=== PATIENT | female | born 1990 | race Caucasian/White ===

== ENCOUNTER 2016-11-01 07:36 | Emergency (ER) | payer OTHER ==
[2016-11-01 09:13] LABS: APPEARANCE HAZY (CLEAR); BILIRUBIN NEGATIVE (NEGATIVE); COLOR YELLOW (YELLOW); GLUCOSE NEGATIVE (NEGATIVE); KETONE NEGATIVE (NEGATIVE); LEUKOCYTE ESTERASE NEGATIVE (NEGATIVE); NITRITE NEGATIVE (NEGATIVE); PROTEIN NEGATIVE (NEGATIVE); UROBILINOGEN NORMAL (NORMAL)
[2016-11-01 09:14] LABS: HCG URINE NEGATIVE (NEGATIVE)
== END 2016-11-01 09:33 | disposition home or self-care (01) ==
LOC: D.ER 07:36
PROVIDERS: Family Medicine
DX: M54.5 Low back pain (principal)

== ENCOUNTER 2017-07-20 07:10 | Emergency (ER) | payer OTHER | END 2017-07-20 08:40 | disposition home or self-care (01) | LOC: D.ER 07:10 | DX: J02.0 Streptococcal pharyngitis (principal); R50.9 Fever, unspecified ==

== ENCOUNTER 2020-06-23 18:07 | Inpatient (IN) | payer MEDICAID ==
[~2020-06-23] VITALS: Ht 165.1 cm; Wt 123.8 kg
[2020-06-23] MEDS ORDERED: FERROUS SULFAT325 MG PO (18:18)
[2020-06-23 18:43] LABS: BASOPHILS 0.3 % (0-2); EOSINOPHILS 2.8 % (0-7); HEMATOCRIT 39.1 % (36.0-48.0); HEMOGLOBIN 12.9 g/dL (12-16); IMMATURE GRANULOCYTES 0.1 % (0-5); LYMPHOCYTE ABS# 1.88 10x3/uL (1.18-3.74); MCH 30.3 pg (26.0-34.0); MCV 91.8 fL (80.0-100.0); MEAN PLATELET VOLUME 10.3 fL (7.4-10.4); MONOCYTES 4.2 % (2-11); NEUTROPHIL ABS# 4.34 10x3/uL (1.56-6.13); NEUTROPHILS 64.6 % (40-80); PLATELET COUNT 251 10x3/uL (130-400); RBC 4.26 10x6/uL (4.00-5.40); RDW 13.6 % (11.5-14.5); WBC 6.7 10x3/uL (4.8-10.8)
[2020-06-23 19:15] LABS: ALBUMIN 3.3 g/dL (3.4-5.0); ANION GAP 17.8 mmol/L (8-16); BILIRUBIN - TOTAL 0.21 mg/dL (0.2-1.3); CARBON DIOXIDE 23.4 mmol/L (21.0-32.0); POTASSIUM - SERUM 4.2 mmol/L (3.5-5.1); PROTEIN - SERUM 7.6 g/dL (6.4-8.2)
[2020-06-23 19:25] LABS: HCG URINE NEGATIVE (NEGATIVE)
[2020-06-23 19:25] LABS: BILIRUBIN NEGATIVE (NEGATIVE); KETONE NEGATIVE (NEGATIVE); NITRITE NEGATIVE (NEGATIVE); UROBILINOGEN NORMAL mg/dL (< 2)
[2020-06-23 23:14] VITALS: BP 152/72; BMI 45.5
[2020-06-24] VITALS: BP 152/72
--- NOTE | 2020-06-24 01:55 | NUR ---
PT IN ROOM RESTING. IS AT BEDSIDE. NO COMPLAINTS OF PAIN NOR DISTRESS. BLOOD GLUCOSE FINGER STICK WAS TAKEN AND NOTED TO BE 311. INSULIN WAS GIVEN. ABLE TO MAKE WANTS AND NEEDS KNOWN TO STAFF CLEARLY. BED IN LOW POSITION AND CALL LIGHT IS IN REACH.
[2020-06-24 04:00] VITALS: BP 127/82
[2020-06-24 06:56] LABS: CALCIUM 9.1 mg/dL (8.5-10.1); CARBON DIOXIDE 27.3 mmol/L (21.0-32.0); CHLORIDE - SERUM 100 mmol/L (98-107); CHOL - HDL RATIO 7.6 ratio (2.3-4.1); CHOLESTEROL, TOTAL 212 mg/dL (0-200); HDL CHOLESTEROL 28 mg/dL (32-96); MAGNESIUM - SERUM 1.9 mg/dL (1.8-2.4); PHOSPHOROUS 3.9 mg/dL (2.5-4.9); SODIUM 137 mmol/L (136-145); UREA NITROGEN 9 mg/dL (7-18)
[2020-06-24 06:59] LABS: CALC OSMOLALITY 286 mosm/kg (275-300); CREATININE - SERUM 0.7 mg/dL (0.6-1.3); GLUCOSE 350 mg/dL (74-106); POTASSIUM - SERUM 3.5 mmol/L (3.5-5.1); TRIGLYCERIDE 582 mg/dL (30-200); eGFR NON AFRICAN AMERICAN > 90 mL/min (90-120)
[2020-06-24 07:44] LABS: BASOPHILS 0.5 % (0-2); EOSINOPHILS 3.3 % (0-7); HEMATOCRIT 38.3 % (36.0-48.0); HEMOGLOBIN 12.7 g/dL (12-16); IMMATURE GRANULOCYTES 0.5 % (0-5); LYMPHOCYTE ABS# 2.12 10x3/uL (1.18-3.74); LYMPHOCYTES 31.9 % (15-50); MCH 30.4 pg (26.0-34.0); MCHC 33.2 g/dL (31.0-37.0); MCV 91.6 fL (80.0-100.0); MEAN PLATELET VOLUME 10.4 fL (7.4-10.4); MONOCYTES 4.8 % (2-11); NEUTROPHIL ABS# 3.93 10x3/uL (1.56-6.13); PLATELET COUNT 235 10x3/uL (130-400); RBC 4.18 10x6/uL (4.00-5.40); RDW 13.6 % (11.5-14.5); WBC 6.7 10x3/uL (4.8-10.8)
--- NOTE | 2020-06-24 07:58 | NUR ---
RESTING IN BED WITH EYES CLOSED, EASILY AROUSED TO SPEECH. AT THE BEDSIDE. IV LOCATED TO RIGHT AC CURRENTLY SL. NO CURRENT S/S OF DISTRESS, DENIES CURRENT NEEDS, WILL CONT TO MONITOR.
[2020-06-24 09:40] VITALS: BP 139/66
[2020-06-24 13:16] VITALS: BMI 45.4
[2020-06-24 14:59] VITALS: BP 142/62
[2020-06-24 16:35] VITALS: Ht 165.1 cm; Wt 123.8 kg
[2020-06-24] MEDS ORDERED: GLIPIZIDE5 MG PO (16:39)
[2020-06-24] MEDS ORDERED: GLUCOPHAGE500 MG PO (16:40)
[2020-06-24] MEDS ORDERED: HUMULIN N100 U/ML SC (16:40)
[2020-06-24] MEDS ORDERED: LISINOPRIL5 MG PO (16:41)
[2020-06-24 17:32] VITALS: BP 120/83
--- NOTE | 2020-06-24 17:44 | NUR ---
IV OUT. DC EDUATION COMPLETED, PAPERS SIGNED, DC`D HOME WITH FAMILY WITH NO CONCERNS.
== END 2020-06-24 17:45 | disposition home or self-care (01) | DRG 638 ==
LOC: D.ER 18:07 → D.MS 22:40
PROVIDERS: Emergency Medicine; Family Medicine; ADMIT Emergency Medicine; ATTEND Emergency Medicine
DX: E11.65 Type 2 diabetes mellitus with hyperglycemia (principal); Z68.42 Body mass index [BMI] 45.0-49.9, adult; E66.01 Morbid (severe) obesity due to excess calories; Z83.3 Family history of diabetes mellitus; I10 Essential (primary) hypertension